=== PATIENT | male | born 1980 | race Hispanic/Latino ===

== ENCOUNTER 2019-02-27 17:28 | Emergency (ER) | payer SELFPAY ==
[2019-02-27] MEDS ORDERED: LIDOCAINE 5% TOPICAL PATCH TP ONE (17:54)
[2019-02-27] MEDS ORDERED: DEXAMETHASONE SOD PHOSPHATE 10MG/ML 1ML VIAL ONE (17:54)
[2019-02-27] MEDS ORDERED: KETOROLAC TROMETHAMINE 60 MG/2 ML VIAL ONE (17:54)
== END 2019-02-27 18:29 | disposition home or self-care (01) ==
LOC: EDH 17:28
DX: M54.5 Low back pain (principal); Z72.0 Tobacco use
CPT/HCPCS: 99283; J1100; J1885; 96372